=== PATIENT | female | born 1995 | race Caucasian/White ===

== ENCOUNTER 2020-10-11 12:00 | Inpatient (IN) ==
[2020-10-17] MEDS ORDERED: Famotidine 20 MG/2 ML VIAL IVP ONE (10:42)
[2020-10-17] MEDS ORDERED: Ringers Solution, Lactated 1,000 ML IVC ONE (10:42)
[2020-10-17] MEDS ORDERED: Oxytocin 20 units/ LR 1000 mL 20 UNIT/1,000 ML BAG IVC ONE ×2 (10:42→15:35)
[2020-10-17] MEDS ORDERED: Metoclopramide 10 MG/2 ML VIAL IVP ONE (10:42)
[2020-10-17] MEDS ORDERED: CeFAZolin Syr 3,000MG/30 ML 3,000 MG/30 ML SYRINGE IVPB ONE (10:42)
[2020-10-17] MEDS ORDERED: Oxytocin 20 units/ LR 1000 mL 20 UNIT/1,000 ML BAG IVC SCH ×2 (10:45→15:59)
[2020-10-17] MEDS ORDERED: Ringers Solution, Lactated 1,000 ML IVC SCH (10:45)
[2020-10-17 11:05] LABS: Basophils % 0.4 %; Eosinophils # 0.3 K/mcL (0.0-0.6); Eosinophils % 2.8 %; Hematocrit 38.1 % (35.3-44.9); Hemoglobin 13.3 g/dL (11.5-15.4); Immature Granulocytes % 0.3 % (0-4); Lymphocytes # 1.5 K/mcL (0.6-4.6); Lymphocytes % 16.4 %; Mean Corpuscular HGB Conc 34.9 g/dL (31.6-35.5); Mean Corpuscular Hemoglobin 32.1 pg (28.0-33.3); Mean Platelet Volume 10.6 fL (9.4-12.4); Monocytes # 0.4 K/mcL (0.0-1.3); Monocytes % 4.8 %; Neutrophils # 6.9 K/mcL (1.6-8.9); Platelet Count 176 K/mcL (140-400); Red Blood Count 4.14 M/mcL (3.82-4.97); Red Cell Distribution Width 12.2 % (11.5-14.5); Segmented Neutrophils % 75.3 %; White Blood Count 9.2 K/mcL (4.3-11.1)
[2020-10-17] MEDS ORDERED: Ondansetron 4 MG/2 ML VIAL ONE (11:08)
[2020-10-17] MEDS ORDERED: *HR* Propofol 200 MG/20 ML VIAL IVP ONE ×2 (11:08→13:00)
[2020-10-17] MEDS ORDERED: Lidocaine -MPF 2% 5 ML VIAL ONE (11:08)
[2020-10-17] MEDS ORDERED: *HR* Succinylcholine 200 MG/10 ML VIAL IVP ONE (11:08)
[2020-10-17] MEDS ORDERED: *HR* FentaNYL (PF) 100 MCG/2 ML VIAL ONE (11:09)
[2020-10-17] MEDS ORDERED: Acetaminophen IV 1,000 MG/100 ML BAG IVPB ONE (11:15)
[2020-10-17] MEDS ORDERED: Ketorolac 30 MG/ML VIAL ONE (11:15)
[2020-10-17 11:17] LABS: Amphetamine Screen,Urine Negative ng/mL (Cutoff=1000); Barbiturate Screen,Urine Negative ng/mL (Cutoff=200); Benzodiazepines Screen,Urine Negative ng/mL (Cutoff=200); Cannabinoid Screen,Urine Negative ng/mL (Cutoff = 50); Cocaine Screen,Urine Negative ng/mL (Cutoff= 300); Opiate Screen,Urine Negative ng/mL (Cutoff=300); Phencyclidine Screen,Urine Negative ng/mL (Cutoff=25)
[2020-10-17] MEDS ORDERED: Ondansetron 4 MG/2 ML VIAL IVP PRN ×2 (11:33→15:59)
[2020-10-17] MEDS ORDERED: *HR* HYDROmorphone PF 0.5 MG/0.5 ML SYRINGE IVP PRN (11:33)
[2020-10-17] MEDS ORDERED: *HR* OxyCODONE Immed Rel 5 MG TABLET PO PRN (11:33)
[2020-10-17] MEDS ORDERED: *HR* HYDROmorphone 20 MG/20 ML PCA IVC PRN (14:40)
[2020-10-17] MEDS ORDERED: Metoclopramide 10 MG/2 ML VIAL IVP PRN (15:59)
[2020-10-17] MEDS ORDERED: Rho Immune Globulin 1,500 UNIT SYRINGE IM ONE (15:59)
[2020-10-17] MEDS: Ibuprofen 600 MG TABLET PO SCH ×2 (18:22→23:47)
[2020-10-17] MEDS: Acetaminophen 325 MG TABLET PO SCH (23:47)
[2020-10-18 05:51] LABS: Basophils % 0.2 %; Eosinophils # 0.1 K/mcL (0.0-0.6); Hematocrit 31.9 % (35.3-44.9); Immature Granulocytes % 0.4 % (0-4); Lymphocytes # 1.7 K/mcL (0.6-4.6); Lymphocytes % 17.2 %; Mean Corpuscular HGB Conc 34.2 g/dL (31.6-35.5); Mean Corpuscular Hemoglobin 31.9 pg (28.0-33.3); Mean Corpuscular Volume 93.3 fL (83.0-100.0); Mean Platelet Volume 11.2 fL (9.4-12.4); Monocytes # 0.7 K/mcL (0.0-1.3); Monocytes % 7.1 %; Neutrophils # 7.4 K/mcL (1.6-8.9); Platelet Count 169 K/mcL (140-400); Red Blood Count 3.42 M/mcL (3.82-4.97); Segmented Neutrophils % 74.1 %
[2020-10-18 05:57] LABS: Hemoglobin 10.9 g/dL (11.5-15.4)
[2020-10-18] MEDS: Ibuprofen 600 MG TABLET PO SCH ×3 (06:23→20:36)
[2020-10-18] MEDS: Acetaminophen 325 MG TABLET PO SCH ×3 (06:23→20:37)
[2020-10-18] MEDS: Simethicone 80 MG TAB.CHEW PO PRN ×2 (10:13→20:51)
[2020-10-18] MEDS: Prenatal Vit/FA 1 EACH TABLET PO SCH (10:13)
[2020-10-18] MEDS ORDERED: Rho Immune Globulin 1,500 UNIT SYRINGE IM ONE (15:30)
[2020-10-18] MEDS: *HR* OxyCODONE Immed Rel 5 MG TABLET PO PRN (20:38)
[2020-10-19] MEDS: *HR* OxyCODONE Immed Rel 5 MG TABLET PO PRN ×2 (01:06→07:42)
[2020-10-19] MEDS: Acetaminophen 325 MG TABLET PO SCH (04:04)
[2020-10-19] MEDS: Ibuprofen 600 MG TABLET PO SCH ×2 (04:05→13:56)
[2020-10-19] MEDS: Prenatal Vit/FA 1 EACH TABLET PO SCH (07:42)
[2020-10-19 12:17] VITALS: BP 140/82; PULSE 81; TEMP 98.8; O2SAT 98
[2020-10-19 13:48] LABS: Alanine Aminotransferase 15 Units/L (7-52); Aspartate Amino Transferase 25 Units/L (13-39); BUN/Creatinine Ratio 22 (6-26); Blood Urea Nitrogen 10 mg/dL (6-20); Lactate Dehydrogenase 226 Units/L (140-271); eGFR For African Americans > 60 (> 60); eGFR For Non-African Americans > 60 (> 60)
== END 2020-10-19 14:56 | disposition home or self-care (01) ==
LOC: 1NENULAB 10-17 10:28 → EDSTATUS 10-17 12:00 → 1NENUOBS 10-17 16:12
PROVIDERS: ADMIT Student in an Organized Health Care Education/Training Program; ATTEND Student in an Organized Health Care Education/Training Program